=== PATIENT | male | born 1945 | race Caucasian/White ===

== ENCOUNTER → 2019-01-15 | Outpatient (CLI) | payer OTHER ==
[~2019-01-15] MED LIST: ASPIRIN81 M1 PO; CALCIUM + VITA1 EAC2 PO; GLIPIZIDE5 MG PO; JANUVIA100 MG PO; METFORMIN HYD1000 MG PO; MULTIVITAMINS1 EAC5 PO; PLAVIX75 M1 PO; VITAMIN D400 UNI1 PO
== END | disposition home or self-care (01) ==
LOC: RAD 13:32
DX: Z01.818 Encounter for other preprocedural examination (principal); A52.16 Charcot's arthropathy (tabetic)